=== PATIENT | female | born 1950 | race Caucasian/White ===

== ENCOUNTER → 2020-07-02 10:22 | Outpatient (CLI) | payer MEDICARE, SELFPAY ==
--- NOTE | ~2020-07-02 | CT_ITS ---
EXAMINATION: CT abdomen pelvis wo/w con DATE: 07/02/2020 10:54 INDICATION: Left flank pain, history of left partial nephrectomy. TECHNIQUE: Computed tomography (CT) of the abdomen was performed without intravenous contrast. CT of the abdomen and pelvis was then performed with a total of 100 mL Omnipaque 350 intravenous contrast. The dose-length product (DLP) was 589.93 mGy-cm. Maximum intensity projection 3D-reconstructions of t he collecting system were created by the technologist at a separate workstation. Automated exposure c ontrol and iterative reconstruction technique were employed. COMPARISON: None FINDINGS: The lung bases are clear. The heart size is normal. There is a small sliding hiatal hernia. Punctate calcifications in an otherwise normal spleen likely represent healed granulomatous disease. The liver, pancreas, gallbladder, and adrenal glands are normal. Scarring in the posterior medial as pect of the left mid kidney likely reflects the site of prior partial nephrectomy. No suspicious laura l or urothelial lesion is identified. No stones are identified in the kidneys, ureters, or bladder. T here is no hydronephrosis or hydroureter. No pathologically enlarged abdominal or pelvic lymph nodes are identified. There is no free intraperitoneal gas or evidence of bowel obstruction. There is moder ate lumbar spondylosis. IMPRESSION: 1. No CT correlate for the patient's symptoms. Reviewed, dictated and finalized at location A.
[2020-07-02 10:38] LABS: Estimated Glomerular Filt Rate > 60
== END ==
PROVIDERS: PCP Physician Assistant; Visit Provider Physician Assistant
DX: R10.9 Unspecified abdominal pain (principal)
CPT/HCPCS: 36415; 74178; Q9967

== ENCOUNTER 2020-07-16 08:27 | Outpatient (NON) | payer MEDICARE, SELFPAY ==
[2020-07-16 23:57] LABS: SARS-CoV-2 RNA PCR Negative
== END 2020-07-16 08:28 ==
PROVIDERS: PCP Physician Assistant; Visit Provider Physician Assistant
DX: R50.9 Fever, unspecified (principal); Z20.828 Contact with and (suspected) exposure to other viral communicable diseases
CPT/HCPCS: 87635; C9803; U0003

== ENCOUNTER → 2020-10-16 13:55 | Outpatient (CLI) | payer MEDICARE, SELFPAY ==
--- NOTE | ~2020-10-16 | MM_ITS ---
EXAMINATION: MM screening sajan BI w liat HISTORY: Screening mammogram TECHNIQUE: Craniocaudal and mediolateral oblique 3-D tomosynthesis images were obtained and synthetic 2-D images were generated. Bilateral rotated lateral craniocaudal views. CAD analysis was submitted and interpreted. COMPARISON: 09/21/2019, 04/14/2017, 03/14/2015 bilateral digital screening mammogram examinations BREAST PARENCHYMAL COMPOSITION: The breasts are heterogeneously dense, which may obscure small masses . FINDINGS: Occasional benign calcifications. There is no evidence of suspicious mass, calcification, o r architectural distortion to suggest malignancy in either breast. There has been no suspicious inter moses change. IMPRESSION: 1. No mammographic evidence of malignancy. 2. Recommend routine screening mammography in one year. BI-RADS Category 2: Benign finding(s). Reviewed, dictated and finalized at location A. STANT FLOOR COVERING PRINTER
== END ==
PROVIDERS: PCP Physician Assistant; Visit Provider Physician Assistant
DX: Z12.31 Encounter for screening mammogram for malignant neoplasm of breast (principal)
CPT/HCPCS: 77063; 77067

== ENCOUNTER → 2021-03-22 01:53 | Outpatient (CLI) | payer MEDICARE, SELFPAY ==
[2021-03-23 14:52] LABS: SARS-CoV-2 RNA PCR Negative
== END ==
PROVIDERS: PCP Physician Assistant; Visit Provider Internal Medicine Gastroenterology
DX: Z01.812 Encounter for preprocedural laboratory examination (principal); Z20.822 Contact with and (suspected) exposure to COVID-19
CPT/HCPCS: C9803; U0003; U0005

== ENCOUNTER 2021-03-26 00:43 | Day surgery (SDC) | payer MEDICARE, SELFPAY ==
[2021-03-19 10:30] VITALS: BMI 18.9
--- NOTE | 2021-03-26 07:51 | WPDANESEPPF ---
Anes - Initial Pre Proc Eval Procedure: Operation Date: 03/26/21 09:00 Proposed Procedures p Screening Colonoscopy - Chuck Lewis MD Date/Time: 03/26/21 07:51 Surgeon: Chuck Lewis MD Pre Op Diagnosis: hx of colon polyps Patient Data Age: 71 Gender: F Height: 1.6 m Weight: 48.5 kg Allergies Allergy/AdvReac Type Severity Reaction Status Date / Time codeine Allergy Severe Nausea and Verified 03/26/21 07:48 Vomiting morphine Allergy Severe Nausea and Verified 03/26/21 07:48 Vomiting Sulfa (Sulfonamide Allergy Intermediate Hives Verified 03/26/21 07:48 Antibiotics) Home Medications Medication Instructions Recorded Confirmed Type atorvastatin 40 mg PO DAILY 11/12/19 03/19/21 History cetirizine [Zyrtec] 10 mg PO DAILY PRN 30 Days #30 11/12/19 03/19/21 Rx tablet denosumab [Prolia] 60 mg SUBCUT [id number] 11/12/19 03/19/21 History duloxetine 60 mg PO DAILY 11/12/19 03/19/21 History lisinopril 10 mg PO DAILY 11/12/19 03/19/21 History lorazepam 1 mg PO HS PRN 11/12/19 03/19/21 History sod picosulf 10 mg-magnes 3.5 160 ml PO BID #160 ml 03/03/21 Rx gram-citric 12 gram/160 mL oral solution Calcium 500 + D (D3) 2 tablet BYMOUTH DAILY 03/19/21 03/19/21 History fluticasone propionate 1 spray INTRANASAL DAILY 03/19/21 03/19/21 History omeprazole 40 mg PO DAILY 03/19/21 03/19/21 History Patient hx anesthesia problems: none Family hx anesthesia problems: none PMFSH Past Medical History Medical History (Updated 03/25/21 @ 12:57 by Noe Welsh DO) Anxiety Cancer Kidney/melanoma Cataracts, bilateral Please take surgery with lens implants Concussion Head injury, sign fell and hit her head approximately 15 years ago. Concussion with no residual Depression GERD (gastroesophageal reflux disease) Hypercholesterolemia Hypertension Osteoporosis PONV (postoperative nausea and vomiting) Rectal polyp Surgical History Surgical History (Updated 11/12/19 @ 13:51 by CRISTI Camarena) H/O: hysterectomy History of appendectomy History of bladder surgery History of nephrectomy Left side due to cancer Social History Social History Smoking status: Never smoker Alcohol intake: never Substance use: never Substance use type: does not use Living arrangements: with family Spiritual care concerns: No Anes - Eval Final PreProcedure Day of Procedure 03/26/21 07:51 Patient weight: normal Heart: regular rate and rhythm Lungs: clear to auscultation and normal air movement Airway: Mallampati scale class II Neurological: alert and oriented Last oral intake: >/= 8 hours ASA classification: III Emergent: no Anesthetic plan: proceed Anesthesia type and monitoring: general GIVS and standard monitoring Informed Consent: The patient's anesthetic plan and its attendant risks and benefits were discussed with the patient/family/POA. Questions were solicited and answers provided to the satisfaction of the patient/family/POA.
[2021-03-26 07:52] VITALS: BP 118/84; PULSE 72; RESP 18; TEMP 36.8; O2SAT 99; BMI 18.6
[2021-03-26] MEDS: LACTATED RINGERS 1,000 ML 150 ML IV CONT (08:05)
--- NOTE | 2021-03-26 08:48 | WPDGICN ---
Assessment and Plan Assessment and plan (1) History of colon polyps: Code(s): Z86.010 - Personal history of colonic polyps Status: Acute Assessment and Plan: Patient reports a history of a colon polyp in the past. Plan is for surveillance colonoscopy now on a 5 year intervals in the future. High-fiber diet is advised. GI Consult Note Consult date/time: 03/26/21 08:48 HPI: Eliza Del Valle is a 71 year old female Presents for screening colonoscopy. Patient has a history of colon polyps in the past. Previous colonoscopies were performed by Dr. Damian. Most recent colonoscopy was 2014. Patient reports that her weight appetite bowel movements are normal. She denies abdominal pain. She denies any blood in her stools. She reports having with renal cell carcinoma. This was found incidentally by CT scan several years ago. Now resected in felt to be cured. Patient presents today for screening colonoscopy. Review of Systems Review of Systems: All systems reviewed & are unremarkable except as noted in HPI and below PMFSH Past Medical History Medical History (Updated 03/26/21 @ 08:50 by Chuck Lewis MD) Anxiety Cancer Kidney/melanoma Cataracts, bilateral Please take surgery with lens implants Concussion Head injury, sign fell and hit her head approximately 15 years ago. Concussion with no residual Depression GERD (gastroesophageal reflux disease) Hypercholesterolemia Hypertension Osteoporosis PONV (postoperative nausea and vomiting) Rectal polyp Surgical History Surgical History (Updated 11/12/19 @ 13:51 by CRISTI Camarena) H/O: hysterectomy History of appendectomy History of bladder surgery History of nephrectomy Left side due to cancer Social History Social History Smoking status: Never smoker Alcohol intake: never Substance use: never Substance use type: does not use Living arrangements: with family Spiritual care concerns: No Meds Home Medications and Allergies Home Medications Medication Instructions Recorded Confirmed Type atorvastatin 40 mg PO DAILY 11/12/19 03/19/21 History cetirizine [Zyrtec] 10 mg PO DAILY PRN 30 Days #30 11/12/19 03/19/21 Rx tablet denosumab [Prolia] 60 mg SUBCUT [id number] 11/12/19 03/19/21 History duloxetine 60 mg PO DAILY 11/12/19 03/19/21 History lisinopril 10 mg PO DAILY 11/12/19 03/19/21 History lorazepam 1 mg PO HS PRN 11/12/19 03/19/21 History sod picosulf 10 mg-magnes 3.5 160 ml PO BID #160 ml 03/03/21 Rx gram-citric 12 gram/160 mL oral solution Calcium 500 + D (D3) 2 tablet BYMOUTH DAILY 03/19/21 03/19/21 History fluticasone propionate 1 spray INTRANASAL DAILY 03/19/21 03/19/21 History omeprazole 40 mg PO DAILY 03/19/21 03/19/21 History Allergies Allergy/AdvReac Type Severity Reaction Status Date / Time codeine Allergy Severe Nausea and Verified 03/26/21 07:48 Vomiting morphine Allergy Severe Nausea and Verified 03/26/21 07:48 Vomiting Sulfa (Sulfonamide Allergy Intermediate Hives Verified 03/26/21 07:48 Antibiotics) Vital Signs Vital Signs - 24 hr 03/26/21 07:52 Temperature 98.3 F Pulse Rate 72 Respiratory Rate 18 Blood Pressure 118/84 Pulse Oximetry 99 Exam Narrative: Exam Narrative: Physical exam reveals patient be alert. Vital signs stable. HEENT exam is unremarkable. Lungs are clear to auscultation and percussion. Heart is without murmur or extra sounds. Abdominal exam bowel sounds are present soft nontender with no hepatosplenomegaly. Digital external rectal exam is normal.
[2021-03-26 09:20] VITALS: BP 101/70; PULSE 74; RESP 15; O2SAT 98
[2021-03-26 09:30] VITALS: BP 106/73; PULSE 65; RESP 14; O2SAT 98
[2021-03-26 09:40] VITALS: BP 111/84; PULSE 70; RESP 15; O2SAT 100
== END 2021-03-26 10:01 | disposition home or self-care (01) ==
PROVIDERS: PCP Physician Assistant; Visit Provider Internal Medicine Gastroenterology
PROC: 0DJD8ZZ Inspection of Lower Intestinal Tract, Via Natural or Artificial Opening Endoscopic (ICD-10-PCS; CPT 45378; principal; 2021-03-26 09:00)
DX: Z12.11 Encounter for screening for malignant neoplasm of colon (principal); Z86.010 Personal history of colon polyps; I10 Essential (primary) hypertension; E78.00 Pure hypercholesterolemia, unspecified; M81.0 Age-related osteoporosis without current pathological fracture; F41.8 Other specified anxiety disorders; K21.9 Gastro-esophageal reflux disease without esophagitis; Z85.528 Personal history of other malignant neoplasm of kidney; Z90.5 Acquired absence of kidney
CPT/HCPCS: G0105; C9803; J2704; J7120; U0003; U0005

== ENCOUNTER → 2021-10-27 15:14 | Outpatient (CLI) | payer MEDICARE, SELFPAY ==
--- NOTE | ~2021-10-27 | MM_ITS ---
EXAMINATION: MM screening sajan BI w liat HISTORY: Screening mammogram TECHNIQUE: Craniocaudal and mediolateral oblique 3-D tomosynthesis images were obtained and synthetic 2-D images were generated. CAD analysis was submitted and interpreted. COMPARISON: 10/16/2020, 09/21/2019, 04/14/2017 BREAST PARENCHYMAL COMPOSITION: The breasts are heterogeneously dense, which may obscure small masses . FINDINGS: Scattered benign-appearing calcifications are present. There is no evidence of suspicious m ass, calcification, or architectural distortion to suggest malignancy in either breast. There has bee n no suspicious interval change. IMPRESSION: 1. No mammographic evidence of malignancy. 2. Recommend routine screening mammography in one year. BI-RADS Category 2: Benign finding(s). Reviewed, dictated and finalized at location A. OR ACCOUNTANT
== END ==
PROVIDERS: PCP Physician Assistant; Visit Provider Physician Assistant
DX: Z12.31 Encounter for screening mammogram for malignant neoplasm of breast (principal)
CPT/HCPCS: 77063; 77067

== ENCOUNTER 2022-01-22 14:02 | Outpatient (CLI) | payer MEDICARE, SELFPAY ==
--- NOTE | ~2022-01-22 | CT_ITS ---
EXAMINATION: CT sinus wo con DATE: 01/22/2022 14:20 INDICATION: Postnasal drip TECHNIQUE: Computed tomography (CT) of the paranasal sinuses was performed without intravenous contra st. The dose-length product (DLP) was 278.92 mGy-cm. Iterative reconstruction was used. COMPARISON: None FINDINGS: There is normal development and pneumatization of the paranasal sinuses. There are fluid le vels in the maxillary sinuses. The frontal, sphenoid, and ethmoid sinuses are clear. The bilateral os tiomeatal complexes are patent. Visualized soft tissues are unremarkable. There are 4 mm of rightward deviation of the nasal septum. IMPRESSION: 1. Small fluid levels in the maxillary sinuses. Reviewed, dictated and finalized at location B. ET ASSEMBLER
== END 2022-01-22 14:03 | disposition home or self-care (01) ==
LOC: ANHIMG 14:07
PROVIDERS: PCP Physician Assistant; Visit Provider Otolaryngology
DX: R09.82 Postnasal drip (principal); J34.2 Deviated nasal septum; J34.3 Hypertrophy of nasal turbinates; J34.89 Other specified disorders of nose and nasal sinuses; R44.8 Other symptoms and signs involving general sensations and perceptions; R09.81 Nasal congestion; J32.0 Chronic maxillary sinusitis
CPT/HCPCS: 70486

== ENCOUNTER → 2022-10-29 14:50 | Outpatient (CLI) | payer MEDICARE, SELFPAY ==
--- NOTE | ~2022-10-29 | MM_ITS ---
EXAMINATION: MM screening sajan BI w liat HISTORY: Screening TECHNIQUE: Craniocaudal and mediolateral oblique 3-D tomosynthesis images were obtained and synthetic 2-D images were generated. CAD analysis was submitted and interpreted. COMPARISON: Comparison to multiple prior studies sequentially, with oldest reviewed study dated 03/14. BREAST PARENCHYMAL COMPOSITION: The breasts are heterogeneously dense, which may obscure small masses . FINDINGS: There is no evidence of suspicious mass, calcification, or architectural distortion to sugg est malignancy in either breast. There has been no suspicious interval change. IMPRESSION: 1. No mammographic evidence of malignancy. 2. Recommend routine screening mammography in one year. BI-RADS Category 1: Negative Reviewed, dictated and finalized at location B. ESSOR OF ART HISTORY
== END ==
PROVIDERS: PCP Physician Assistant; Visit Provider Physician Assistant
DX: Z12.31 Encounter for screening mammogram for malignant neoplasm of breast (principal)
CPT/HCPCS: 77063; 77067

== ENCOUNTER 2022-12-14 06:52 | Day surgery (SDC) | payer MEDICARE, SELFPAY ==
[2022-12-11 09:41] VITALS: BMI 19.5
--- NOTE | 2022-12-14 07:10 | WPDANESEPPF ---
Anes - Initial Pre Proc Eval Procedure: Operation Date: 12/14/22 11:00 Proposed Procedures p Esophagogastroduodenoscopy - Chuck Lewis MD Date/Time: 12/14/22 07:10 Surgeon: Chuck Lewis MD Pre Op Diagnosis: Dysphagia and Gerd Patient Data Age: 72 Gender: F Height: 1.6 m Weight: 50 kg Allergies Allergy/AdvReac Type Severity Reaction Status Date / Time codeine Allergy Severe Nausea and Verified 12/14/22 10:07 Vomiting morphine Allergy Severe Nausea and Verified 12/14/22 10:07 Vomiting Sulfa (Sulfonamide Allergy Intermediate Hives Verified 12/14/22 10:07 Antibiotics) Home Medications Medication Instructions Recorded Confirmed Type atorvastatin 40 mg tablet 40 mg PO DAILY 11/12/19 12/11/22 History cetirizine 10 mg tablet (Zyrtec) 10 mg PO DAILY PRN allergy 11/12/19 12/11/22 Rx symptoms 30 days #30 tabs denosumab 60 mg/mL subcutaneous 60 mg subcut [id number] 11/12/19 12/11/22 History syringe (Prolia) duloxetine 60 mg capsule,delayed 60 mg PO DAILY 11/12/19 12/11/22 History release lisinopril 10 mg tablet 10 mg PO DAILY 11/12/19 12/11/22 History lorazepam 1 mg tablet 1 mg PO HS PRN Insomnia 11/12/19 12/11/22 History Calcium 500 + D (D3) 2 tablet BYMOUTH DAILY 03/19/21 12/11/22 History omeprazole 40 mg capsule,delayed 40 mg PO DAILY 03/19/21 12/11/22 History release fluticasone propionate 50 2 spray intranasal BID 01/14/22 12/11/22 History mcg/actuation nasal spray,suspension famotidine 40 mg tablet 40 mg PO DAILY #30 tabs 12/10/22 12/11/22 Rx Patient hx anesthesia problems: none Family hx anesthesia problems: none Results Review: All pre-operative results and documents have been reviewed as part of the pre-operative evaluation. [facility] Past Medical History Medical History (Updated 12/10/22 @ 13:39 by Kylie Alvarenga, MIRTHA) Anxiety Belching Cancer Kidney/melanoma Cataracts, bilateral Please take surgery with lens implants Concussion Head injury, sign fell and hit her head approximately 15 years ago. Concussion with no residual Depression Dysphagia GERD (gastroesophageal reflux disease) Hx of adenomatous colonic polyps Hypercholesterolemia Hypertension Osteoporosis PONV (postoperative nausea and vomiting) Rectal polyp Surgical History Surgical History H/O: hysterectomy History of appendectomy History of bladder surgery History of nephrectomy Left side due to cancer Family History Family History Father Alcoholism Heart disease Mother Hypertension Thyroid disorder Grandparent Breast cancer Social History Social History Smoking status: Never smoker Alcohol intake: never Substance use: never Substance use type: does not use Living arrangements: with family Spiritual care concerns: No Anes - Eval Final PreProcedure Day of Procedure 12/14/22 07:10 Patient weight: normal Heart: regular rate and rhythm Lungs: clear to auscultation and normal air movement Airway: Mallampati scale class II Neurological: alert and oriented Last oral intake: >/= 8 hours ASA classification: III Emergent: no Anesthetic plan: proceed Anesthesia type and monitoring: general GIVS and standard monitoring Results Review: All pre-operative results and documents have been reviewed as part of the pre-operative evaluation. Informed Consent: The patient's anesthetic plan and its attendant risks and benefits were discussed with the patient/family/POA. Questions were solicited and answers provided to the satisfaction of the patient/family/POA.
[2022-12-14 10:05] VITALS: BP 128/82; PULSE 78; RESP 20; TEMP 37.1; O2SAT 100
--- NOTE | 2022-12-14 10:26 | WPDHPUPDATE1 ---
History and Physical Update Update Date/Time: 12/14/22 10:26 History and Physical has been reviewed, including an updated exam of the patient. There are NO changes in the patient's condition. Risks, benefits, and alternatives have been discussed and questions answered. Patient agrees to proceed with procedure.
[2022-12-14] MEDS: LACTATED RINGERS 1,000 ML 150 ML IV CONT (10:41)
[2022-12-14 11:04] VITALS: BP 104/77; PULSE 75; RESP 16; O2SAT 100
[2022-12-14 11:14] VITALS: BP 105/80; PULSE 72; RESP 16; O2SAT 100
[2022-12-14 11:24] VITALS: BP 118/81; PULSE 72; RESP 20; O2SAT 98
[2022-12-14 11:34] VITALS: BP 120/88; PULSE 71; RESP 20; O2SAT 100
--- NOTE | 2022-12-14 11:52 | WPDANESPN ---
Anes - Prog Note Post-Op Date/Time: 12/14/22 11:52 Cardiovascular status: normal Respiratory status: normal Airway patency: baseline Mental status: baseline Post-Op hydration status: normal Vital Signs: Last Vital Signs Temp 37.1 C 12/14/22 10:05 Pulse 71 12/14/22 11:34 Resp 20 12/14/22 11:34 BP 120/88 12/14/22 11:34 Pulse Ox 100 12/14/22 11:34 O2 Del Method Room Air 12/14/22 11:34 Pain Score (VAS): 0 I/O: Intake & Output 12/13/22 12/14/22 12/14/22 23:59 07:59 15:59 Intake Total 200 Balance 200 Post-procedural complaints: none Patient Feedback: Patient satisfied with anesthetic care. Other Findings: Patient vital signs back to baseline. Patient denies nausea and vomiting. Patient's pain under control. Patient OK for discharge.
== END 2022-12-14 11:47 | disposition home or self-care (01) ==
PROVIDERS: PCP Physician Assistant; Visit Provider Internal Medicine Gastroenterology
PROC: 0DJ08ZZ Inspection of Upper Intestinal Tract, Via Natural or Artificial Opening Endoscopic (ICD-10-PCS; CPT 43235; principal; 2022-12-14 11:00)
DX: R13.19 Other dysphagia (principal)
CPT/HCPCS: 43450

== ENCOUNTER → 2023-11-01 14:52 | Outpatient (CLI) | payer MEDICARE, SELFPAY ==
--- NOTE | ~2023-11-01 | MM_ITS ---
EXAMINATION: MM screening sajan BI w liat HISTORY: Screening mammogram TECHNIQUE: Craniocaudal and mediolateral oblique 3-D tomosynthesis images were obtained and synthetic 2-D images were generated. Bilateral rotated lateral CC views. CAD analysis was submitted and interp reted. COMPARISON: 10/29/2022, 10/27/2021, 10/16/2020 bilateral screening mammogram examinations BREAST PARENCHYMAL COMPOSITION: The breasts are heterogeneously dense, which may obscure small masses . FINDINGS: There is no evidence of suspicious mass, calcification, or architectural distortion to sugg est malignancy in either breast. There has been no suspicious interval change. IMPRESSION: 1. No mammographic evidence of malignancy. 2. Recommend routine screening mammography in one year. BI-RADS Category 1: Negative Reviewed, dictated and finalized at location A. RIALS DEVELOPMENT ENGINEER
== END ==
PROVIDERS: PCP Physician Assistant; Visit Provider Physician Assistant
DX: Z12.31 Encounter for screening mammogram for malignant neoplasm of breast (principal)
CPT/HCPCS: 77063; 77067

== ENCOUNTER 2024-10-16 14:28 | Outpatient (CLI) | payer MEDICARE, SELFPAY ==
--- NOTE | ~2024-10-16 | XR_ITS ---
EXAMINATION: XR chest 2V DATE: 10/16/2024 14:50 INDICATION: Cough. TECHNIQUE: Frontal and lateral views of the chest were obtained. COMPARISON: None. FINDINGS: There is no pneumonia, pleural effusion, or pneumothorax. The heart size is normal. Calcifi ed hilar and mediastinal lymph nodes are consistent with old granulomatous disease. IMPRESSION: 1. No acute cardiopulmonary disease. Reviewed, dictated and finalized at location A. NERATION TECHNICIAN
== END 2024-10-16 14:29 | disposition home or self-care (01) ==
PROVIDERS: PCP Physician Assistant; Visit Provider Physician Assistant
DX: R05.1 Acute cough (principal); R06.2 Wheezing
CPT/HCPCS: 71046

== ENCOUNTER 2025-01-18 13:15 | Outpatient (CLI) | payer MEDICARE, SELFPAY ==
--- NOTE | ~2025-01-18 | MM_ITS ---
EXAMINATION: MM screening sajan BI w liat HISTORY: Screening mammogram TECHNIQUE: Craniocaudal and mediolateral oblique 3-D tomosynthesis images were obtained and synthetic 2-D images were generated. CAD analysis was submitted and interpreted. COMPARISON: 11/01/2023, 10/29/2022, 10/27/2021, 10/16/2020 BREAST PARENCHYMAL COMPOSITION:Dense: The breasts are heterogeneously dense, which may obscure small masses. FINDINGS: No suspicious mass, calcification, or architectural distortion are identified in either lis ast to suggest malignancy. There has been no suspicious interval change. IMPRESSION: No mammographic evidence of malignancy. Recommend routine screening mammography in one year. BI-RADS Category 1: Negative Reviewed, dictated and finalized at location . TICS BENCH MECHANIC
== END 2025-01-18 13:16 | disposition home or self-care (01) ==
LOC: MICIMG 13:16
PROVIDERS: PCP Physician Assistant; Visit Provider Physician Assistant
DX: Z12.31 Encounter for screening mammogram for malignant neoplasm of breast (principal)
CPT/HCPCS: 77063; 77067